=== PATIENT | female | born 1955 | race Two or more races ===

== ENCOUNTER 2023-07-09 09:52 | Outpatient (CLI) | payer OTHER | END 2023-07-09 20:55 | disposition home or self-care (01) | LOC: SRD 09:52 | PROVIDERS: ATTEND Student in an Organized Health Care Education/Training Program | DX: K22.4 Dyskinesia of esophagus (principal); K44.9 Diaphragmatic hernia without obstruction or gangrene; K31.89 Other diseases of stomach and duodenum; R09.89 Other specified symptoms and signs involving the circulatory and respiratory systems | CPT/HCPCS: 74220-TC ==